=== PATIENT | female | born 1955 | race Caucasian/White ===

== ENCOUNTER 2021-09-01 08:35 | Emergency (ER) | payer SELFPAY ==
[~2021-09-01 08:35] MED LIST: ASPIRIN EC81 MG PO; ATORVASTATIN CA20 MG PO; COREG6.25 MG PO; COZAAR50 MG PO; FOLIC ACID 1 MG1 MG PO; METHOTREXATE T2.5 MG PO; ROBAXIN-750750 MG PO; SYNTHROID150 MCG PO; ZANTAC150 MG PO
[2021-09-01] MEDS ORDERED: CYCLOBENZAPRINE10 MG PO (09:01)
== END 2021-09-01 09:30 | disposition home or self-care (01) ==
LOC: ER1 08:35
DX: G89.29 Other chronic pain (principal); M54.50 Low back pain, unspecified; I10 Essential (primary) hypertension; Z88.0 Allergy status to penicillin
CPT/HCPCS: 96372; 99283; J1100; J1885